=== PATIENT | female | born 1965 | race American Indian/Alaskan Native ===

== ENCOUNTER 2017-06-03 09:54 | Emergency (ER) | payer BC ==
[2017-06-03 09:54] VITALS: BMI 26.9
[2017-06-03 10:05] VITALS: BP 138/78; PULSE 97; RESP 20; TEMP 98.7; O2SAT 98
--- NOTE | 2017-06-03 10:16 | ED PDOC ---
Arrival/HPI - General Chief Complaint: Lower Extremity Problem/Injury Time Seen by Provider: 06/03/17 10:11 Historian: Patient - History of Present Illness Narrative History of Present Illness (Text): 06/03/17 10:13 52yo female with PMHx of hyperlipdemia present with complaint of intermittent sharp right hip pain s/p Jadiel class yesterday. States pain was worse yesterday. Took Tylenol/Codeine last night with mild relieve. States pain is when she turns certain way. Denies focal weakness, back pain, saddle anesthesia , paresthesia, abdominal pain, any other complaint. Past Medical History - Provider Review Nursing Documentation Reviewed: Yes - Infectious Disease Hx of Infectious Diseases: None - Tetanus Immunization Tetanus Immunization: Unknown - Reproductive Menopause: Yes - Renal Hx Kidney Stones: Yes - Musculoskeletal/Rheumatological Hx Falls: No - Psychiatric Hx Depression: No Hx Emotional Abuse: No Hx Physical Abuse: No Hx Substance Use: No - Surgical History Hx Orthopedic Surgery: Yes (torn miniscus) Hx Tubal Ligation: Yes - Suicidal Assessment Feels Threatened In Home Enviroment: No Family/Social History - Physician Review Nursing Documentation Reviewed: Yes Family/Social History: Unknown Family HX Smoking Status: Never Smoked Hx Alcohol Use: No Hx Substance Use: No Hx Substance Use Treatment: No Allergies/Home Meds Allergies/Adverse Reactions: Allergies No Known Allergies Allergy (Verified 10/14/15 21:14) Home Medications: Home Meds Medication Instructions Recorded Confirmed Atorvastatin [Lipitor] 10 mg PO DIN 06/03/17 06/03/17 Review of Systems - Physician Review All systems were reviewed & negative as marked: Yes - Review of Systems Constitutional: Normal Eyes: Normal ENT: Normal Respiratory: Normal Cardiovascular: Normal Gastrointestinal: Normal Genitourinary Female: Normal Musculoskeletal: Arthralgias (Right hip pain) Skin: Normal Neurological: Normal Endocrine: Normal Hemo/Lymphatic: Normal Psychiatric: Normal Physical Exam Vital Signs Temp Pulse Resp BP Pulse Ox 06/03/17 10:00 98.7 F 97 H 20 138/78 98 Temperature: Afebrile Blood Pressure: Normal Pulse: Regular Respiratory Rate: Normal Appearance: Positive for: Well-Appearing, Non-Toxic, Comfortable Pain Distress: None Mental Status: Positive for: Alert and Oriented X 3 - Systems Exam Head: Present: Atraumatic, Normocephalic Pupils: Present: PERRL Extroacular Muscles: Present: EOMI Conjunctiva: Present: Normal Mouth: Present: Moist Mucous Membranes Neck: Present: Normal Range of Motion Respiratory/Chest: Present: Clear to Auscultation, Good Air Exchange. No: Respiratory Distress, Accessory Muscle Use Cardiovascular: Present: Regular Rate and Rhythm, Normal S1, S2. No: Murmurs Abdomen: Present: Normal Bowel Sounds. No: Tenderness, Distention, Peritoneal Signs Back: Present: Normal Inspection Upper Extremity: Present: Normal Inspection. No: Cyanosis, Edema Lower Extremity: Present: NORMAL PULSES, Normal ROM (With pain on adduction/ abduction), Tenderness (Lateral right hip), Neurovascularly Intact. No: Edema, CALF TENDERNESS, Cyanosis, Swelling, Erythema, Deformity Neurological: Present: GCS=15, CN II-XII Intact, Speech Normal Skin: Present: Warm, Dry, Normal Color. No: Rashes Psychiatric: Present: Alert, Oriented x 3, Normal Insight, Normal Concentration Medical Decision Making ED Course and Treatment: 06/03/17 13:14 While in ED pt also complained of her right ankle and requested xray of the ankle. She had diffuse tenderness of the ankle. No swelling. Pedis pulse intact. NVI. On re evaluation she notes that her pain improved. She was ambulatory with normal gait. Hip and Ankle xray - Negative Result was DW the pt and she was DC home with Ibuprofen and Flexeril. Referred to her PMD. - RAD Interpretation Radiology Orders: 06/03/17 10:11 Hip Bilateral [HIP MIN 3V W/ PELVIS KATHRYN] [RAD] Stat 06/03/17 11:33 ANKLE RIGHT 3 VIEWS ROUTINE [RAD] Stat - Medication Orders Current Medication Orders: Discontinued Medications Ketorolac Tromethamine (Toradol) 60 mg IM STAT STA Stop: 06/03/17 10:13 Last Admin: 06/03/17 11:49 Dose: 60 mg Disposition/Present on Arrival - Present on Arrival Any Indicators Present on Arrival: No History of DVT/PE: No History of Uncontrolled Diabetes: No Urinary Catheter: No History of Decub. Ulcer: No History Surgical Site Infection Following: None - Disposition Have Diagnosis and Disposition been Completed?: Yes Diagnosis: Hip sprain, Ankle pain Disposition: HOME/ ROUTINE Disposition Time: 13:00 Patient Plan: Discharge Patient Problems: Current Active Problems Problem Status Onset Ankle pain Acute Hip sprain Acute Condition: STABLE Discharge Instructions (ExitCare): Arthralgia (ED), Hip Pain (ED) Additional Instructions: Follow up with your Doctor/Orthopedist Return to ED for any new or worsening symptoms Prescriptions: Cyclobenzaprine [Cyclobenzaprine HCl] 10 mg PO TID #12 tab Ibuprofen [Motrin Tab] 600 mg PO Q6 #20 tab Referrals: Neal Heath MD [Primary Care Provider] - Follow up with primary Ismael Murillo DO [Staff Provider] - Follow up with primary
--- NOTE | 2017-06-03 12:53 | RAD ---
PROCEDURE: Radiographs of the pelvis and bilateral hips HISTORY: Right hip pain COMPARISON: None. FINDINGS: BONES: Pelvis: Unremarkable. Right hip:Unremarkable. Left hip:Unremarkable. JOINTS: Right hip: Unremarkable. Left hip: Unremarkable. Sacroiliac Joints: Unremarkable. Pubic symphysis: Unremarkable. SOFT TISSUES: Normal. OTHER FINDINGS: None. IMPRESSION: Unremarkable radiographs of the hips and pelvis.
--- NOTE | 2017-06-03 12:54 | RAD ---
PROCEDURE: Right Ankle Radiographs. HISTORY: ankle pain COMPARISON: None FINDINGS: BONES: Normal. No fracture. JOINTS: Normal. No osteoarthritis. Ankle mortise maintained. Talar dome intact SOFT TISSUES: Normal. OTHER FINDINGS: None. IMPRESSION: Normal right ankle radiographs.
== END 2017-06-03 14:04 | disposition home or self-care (01) ==
LOC: ED 09:54
DX: S73.101A Unspecified sprain of right hip, initial encounter (principal); S93.401A Sprain of unspecified ligament of right ankle, initial encounter; X50.0XXA Overexertion from strenuous movement or load, initial encounter; Y93.49 Activity, other involving dancing and other rhythmic movements; Y92.89 Other specified places as the place of occurrence of the external cause
CPT/HCPCS: 73522; 73610; 96372; 99284; J1885

== ENCOUNTER 2019-01-22 10:46 | Day surgery (SDC) | payer BC | END 2019-01-22 14:34 | disposition home or self-care (01) | LOC: ENDO 10:46 ==